=== PATIENT | female | born 1975 | race Caucasian/White ===

== ENCOUNTER 2018-01-21 23:46 | Inpatient (IN) | payer OTHER ==
[~2018-01-21] VITALS: Ht 165.1 cm; Wt 68.0 kg
[~2018-01-21 23:46] MED LIST: CATAFLAN PO; CIPRO500 MG PO; MEDROXYPROGEST2.5 MG PO; PEPCID20 MG PO; PERCOCET 5-3251 EACH PO; PROTONIX40 M1 PO; ZANTAC150 MG PO; ZOFRAN ODT8 MG PO; [UNRECOGNIZED DRUG - OTHER] PO; [UNRECOGNIZED DRUG - OTHER] PO
[2018-01-21] MEDS ORDERED: FLAGYL375 MG (23:58)
[2018-01-21] MEDS ORDERED: BENTONITE500 GM (23:59)
[2018-01-21] MEDS ORDERED: OMEPRAZOLE10 MG (23:59)
[2018-01-21] MEDS ORDERED: ZANTAC 7575 MG (23:59)
[2018-01-25] MEDS ORDERED: HYOSCYAMINE0.125 M1 SL (17:00)
[2018-01-25] MEDS ORDERED: GABAPENTIN100 MG PO (17:01)
[2018-01-25] MEDS ORDERED: ULTRACET PO (17:01)
== END 2018-01-25 17:11 | disposition home or self-care (01) | DRG 354 ==
LOC: ER 23:46 → SEC-K 01-22 09:48 → O/R 01-22 09:48 → SURG 01-22 09:48 → O/R 01-22 10:56 → SURH 01-22 15:36 → SURG 01-23 04:10
PROVIDERS: Surgery
PROC: 0WUF4JZ Supplement Abdominal Wall with Synthetic Substitute, Percutaneous Endoscopic Approach (ICD-10-PCS; principal; 2018-01-22 12:00)
DX: K43.6 Other and unspecified ventral hernia with obstruction, without gangrene (principal); K44.0 Diaphragmatic hernia with obstruction, without gangrene; K29.60 Other gastritis without bleeding; K29.80 Duodenitis without bleeding; D64.89 Other specified anemias